=== PATIENT | male | born 1985 | race Caucasian/White ===

== ENCOUNTER 2020-07-25 | Outpatient (REF) | payer BC, SELFPAY ==
[2020-07-26 11:54] LABS: Glucose Urine UA NEG (NEG); Leukocyte Esterase Urine NEG (NEG); Nitrite Urine NEG (NEG); PH 7.5 (5.0-8.0); Specific Gravity - Urine 1.015 (1.005-1.025); Urine Blood NEG (NEG); Urine Ketones NEG (NEG); Urine Protein NEG (NEG-TRACE)
[2020-07-26 11:56] LABS: Appearance Urine CLEAR; Color Urine YELLOW
[2020-07-26 15:13] LABS: CT PCR NOT DETECTED (Not Detect.); NG PCR NOT DETECTED (Not Detect.)
== END 2020-07-25 00:01 | disposition home or self-care (01) ==
LOC: HO.LNP
PROVIDERS: Visit Provider Family Medicine
DX: R30.0 Dysuria (principal); Z11.3 Encounter for screening for infections with a predominantly sexual mode of transmission
CPT/HCPCS: 81003; 87086; 87491; 87591

== ENCOUNTER 2021-07-01 11:09 | Outpatient (REF) | payer OTHER, SELFPAY ==
[2021-07-01 13:23] LABS: MANUAL DIFF FLAG NO
[2021-07-01 13:27] LABS: Basophils Absolute Auto 0.1 X10*3/uL (0.0-0.2); Basophils Percent Auto 1.3 % (0-2); Eosinophils Absolute Auto 0.1 X10*3/uL (0.0-0.4); Eosinophils Percent Auto 2.8 % (0-4); Hematocrit 42.6 % (42.0-52.0); Hemoglobin 14.6 g/dl (14.0-18.0); Lymphocytes Absolute Auto 1.5 X10*3/uL (1.2-4.9); Lymphocytes Percent Auto 38.8 % (20-40); Mean Corpuscular HGB Conc 34.3 g/dl (31.0-36.0); Mean Corpuscular Hemoglobin 31.3 pg (27.0-33.0); Mean Corpuscular Volume 91.4 fL (80.0-98.0); Monocytes Absolute Auto 0.4 X10*3/uL (0.1-1.2); Monocytes Percent Auto 11.1 % (2-11); Neutrophils Absolute Auto 1.8 x10*3/uL (2.0-8.3); Platelet Count 180 X10*3/uL (160-400); Red Blood Count 4.66 X10*6/uL (4.60-5.80); Red Cell Distribution Width 11.8 % (11.0-16.0)
[2021-07-01 13:33] LABS: Appearance Urine CLEAR; Glucose Urine UA NEG (NEG); Leukocyte Esterase Urine NEG (NEG); Nitrite Urine NEG (NEG); Specific Gravity - Urine <= 1.005 (1.005-1.025); Urine Blood NEG (NEG); Urine Ketones NEG (NEG); Urine Protein NEG (NEG-TRACE)
[2021-07-01 13:34] LABS: Color Urine COLORLESS
[2021-07-01 13:44] LABS: Alanine Aminotransferase 10 U/L (0-40); Albumin Level 4.9 g/dL (3.5-5.0); Alkaline Phosphatase 80 U/L (39-117); Anion Gap 12 (12-20); Aspartate Amino Transferase 16 U/L (5-37); Bilirubin Total 0.6 mg/dL (0.0-1.0); Blood Urea Nitrogen 7 mg/dL (9-16); Calcium 9.7 mg/dL (8.4-10.2); Carbon Dioxide 26 mmol/L (22-29); Chloride 105 mmol/L (96-108); Cholesterol 165 mg/dL; Estimated Glomerular Filt Rate > 60; Glucose Fasting 99 mg/dL (60-99); HDL Cholesterol 46 mg/dL; Iron 67 mcg/dL (45-160); LDL Cholesterol Calculated 109 mg/dl; Percent Iron Saturation 20 % (15-50); Sodium 139 mmol/L (135-145); Total Iron Binding Capacity 338 mcg/dL (228-428); Total Protein 7.6 g/dL (6.5-8.0); Triglycerides 51 mg/dL; Unsaturated Iron Binding 271 ug/dL
[2021-07-01 13:58] LABS: Ferritin 83 ng/mL (20-250); TSH reflex Free T4 1.89 uIU/mL (0.32-4.0)
[2021-07-01 14:22] LABS: Folate 13.9 ng/mL (> or = 4.0); Vitamin B12 675 pg/mL (200-900)
== END 2021-07-01 11:10 | disposition home or self-care (01) ==
LOC: HO.WFDLDS 11:09
PROVIDERS: Visit Provider Family Medicine
DX: Z00.00 Encounter for general adult medical examination without abnormal findings (principal); R30.0 Dysuria; E53.8 Deficiency of other specified B group vitamins; R20.9 Unspecified disturbances of skin sensation
CPT/HCPCS: 36415; 80053; 80061; 81003; 82607; 82728; 82746; 83540; 84443; 85025

== ENCOUNTER → 2021-08-15 15:12 | Outpatient (BNVA) | payer OTHER, SELFPAY | PROVIDERS: PCP Family Medicine | DX: R35.0 Frequency of micturition (principal) | CPT/HCPCS: 51798; 99202 ==

== ENCOUNTER 2024-03-08 10:07 | Outpatient (AMB) | payer OTHER, SELFPAY ==
--- NOTE | 2024-03-08 10:10 | MHC.PC.OV ---
Vital Signs 03/08/24 10:15 Height 4 ft 11 in Weight 126 lb 4 oz BMI 25.5 BP 102/64 Blood Pressure Location Rt brachial Position Sitting Respiration 16 Pulse 79 Pulse Source Pulse Oximeter Temp 98.4 F Temp Source Oral Pulse Oximetry (%) 100 Oxygen Delivery Method Room Air Intake Visit Reasons: Insomnia / Anxiety (get ins) Intake Note: patient here c/o of insomnia and anxiety [employer] Required: No Allergies No Known Allergies Allergy (Verified 03/08/24 10:24) Medication List - Last Reconciled 03/08/24 by Trever Black CNP No Known Home Meds Tobacco use date assessed: 03/08/24 Dental Screening Dental Screen Date: 03/08/24 Did you have a dental visit in the last 12 months?: Yes Did you have a dental problem in the last 6 months where you did not have access to dental care?: No Was dental information given to patient?: Patient has dentist HPI HPI Comments History of Present Illness Details 38-year-old male presents with complaints of body tension and anxiety. His anxiety wakes him up multiple times from his sleep at night. His symptoms started been ongoing for the past 3 weeks and intensified after he experimented with micro dose of sublingual cannabis oil for 1 month and smoked three puffs of cannabis for three days. He has not used or smoke cannabis since the onset of his symptoms. He has been taking Benadryl with significant improvement. He denies stresses. He denies history of anxiety, depression, or mental illiness. He notes that he does physical exercise routinely. He also maintains a healthy diet. He is a patient of Dr. Barrett. His last office visit was on 07/10/2021. Nonsmoker. Does not drink alcohol. No recreational drugs at this time. [facility] Social History Housing: House Alcohol intake: current Patient Tobacco Use Status: Never used Tobacco e-Cigarette/Vaping Use: Never Used Second Hand Smoke Exposure: No service: No Current occupational status: employed Current occupational exposures/hazards: No Cognitive needs: No Hearing needs: No Vision needs: No Questionnaire PHQ-9 Over the last 2 weeks, how often have you been bothered by any of the following problems? 1. Little interest or pleasure in doing things: not at all 2. Feeling down, depressed, or hopeless: not at all 3. Trouble falling or staying asleep, or sleeping too much: nearly every day 4. Feeling tired or having little energy: several days 5. Poor appetite or overeating: not at all 6. Feeling bad about yourself - or that you are a failure or have let yourself or your family down: not at all 7. Trouble concentrating on things, such as reading the newspaper or watching television: several days 8. Moving or speaking so slowly that other people could have noticed. Or the opposite - being so fidgety or restless that you have been moving around a lot more than usual: not at all 9. Thoughts that you would be better off or of hurting yourself in some way: not at all Total score: 5 Depression Screening Interpretation: Positive Depression Screening Done: Yes 56837 - PHQ-9 Billing: Yes Source: Developed by Drs. Fernie Garza, Lucie Sarabia, Vinay Francis and colleagues, with an educational flavia from [employer]. Thrive Questionnaire Date Thrive assessed: 03/08/24 I am a: Patient What is your living situation today?: I choose not to answer this question Within the past 12 months, did the food you bought not last and you didn't have the money to get more?: I choose not to answer this question Within the past 12 months, did you worry whether your food would run out before you got money to buy more?: I choose not to answer this question Do you have trouble paying for medicines?: I choose not to answer this question Do you have trouble getting transportation to medical appointments?: I choose not to answer this question Do you have trouble paying your heating and electricity bill?: I choose not to answer this question Do you have trouble taking care of your child, family member or friend?: I choose not to answer this question Do you have trouble with day-to-day activities such as bathing, preparing meals, shopping, managing finances, etc.?: I choose not to answer this question Are you currently unemployed and looking for a job?: I choose not to answer this question Are you interested in more education?: I choose not to answer this question Please select the resources that you would like help with: None Currently or been in a relationship where the following occur: I choose not to answer THRIVE Score: 0 AUDIT C Alcohol Use Questionnaire (AUDIT-C) 1. How often do you have a drink containing alcohol?: Never Total Score: 0 Score Reviewed/Action Taken: Yes VAN-7 AMB Questionnaire VAN-7 Date VAN - 7 assessed: 03/08/24 Feeling nervous, anxious, or on edge: 3 = Nearly every day Not being able to stop or control worryin = Nearly every day Worrying too much about different things: 3 = Nearly every day Trouble relaxin = Nearly every day Being so restless that it is hard to sit still: 0 = Not at all Becoming easily annoyed or irritable: 0 = Not at all Feeling afraid as if something awful might happen: 2 = More than half the days Total VAN-7 score (0-4 normal; 5-9 mild; 10-14 moderate; 15-21 severe): 14 Source: Developed by Drs. Fernie Garza, Lucie Sarabia, Vinay Francis and colleagues, with an educational flavia from [employer]. VAN-7 Assessment Billing VAN-7 Assessment Tool: VAN-7 Assessment 76721 Review of Systems Const Details: Const Denies chills, Denies fatigue, Denies fever(s), Denies headache(s) and Denies weakness ENT Denies dizziness and Denies headache(s) Card Denies chest pain, Denies lightheadedness, Denies dyspnea and Denies other (Palpitations) Resp Denies cough, Denies dyspnea, Denies wheezing and Denies other ( shortness of breath) GI Denies abdominal pain, Denies melena, Denies hematochezia, Denies change in bowel habits, Denies dyspepsia and Denies nausea Denies hematuria and Denies dysuria Musc Denies abnormal gait, Denies myalgias, Denies arthralgias, Denies numbness and Denies tingling Skin/Breast Denies rash, Denies unusual bruising and Denies wounds Neuro Denies abnormal gait, Denies dizziness, Denies headache(s), Denies memory loss, Denies numbness, Denies Sensory deficit (Neuro), Denies tingling and Denies weakness Psych Reports anxiety, Denies depression, Denies memory loss Endo Denies cold intolerance, Denies fatigue, Denies heat intolerance, Denies polydipsia and Denies polyuria Aller/Immun Denies wheezing Physical exam (Primary Care) Vital Signs: Last Vital Signs Temp 98.4 F 03/08/24 10:15 Pulse 79 03/08/24 10:15 Resp 16 03/08/24 10:15 BP 102/64 03/08/24 10:15 Pulse Ox 100 03/08/24 10:15 Oxygen Delivery Method Room Air 03/08/24 10:15 BMI result Body Mass Index 25.5 Tobacco/Smoking Status: Tobacco use Status Tobacco use date assessed 03/08/24 03/08/24 10:16 Patient Tobacco Use Status Never used Tobacco 03/08/24 10:16 e-Cigarette/Vaping Use Never Used 03/08/24 10:13 PHQ-9: PHQ-9 Score PHQ-9: Total score 5 03/08/24 10:31 Depression Screening Interpretation: Positive Thrive Assessment: Date of Thrive Assessment Date Thrive assessed 03/08/24 03/08/24 10:21 Currently or been in a relationship where the following occur: I choose not to answer Const Other: General: no acute distress and well developed Nutritional Appearance: well nourished Orientation/consciousness: patient oriented x3 HENMT Head: Yes normocephalic and Yes atraumatic Eyes General: appearance normal, both eyes and all related structures Pupils: Equal, round and reactive pupils present EOM: EOMs intact bilaterally Resp Effort & Inspection: normal respiratory effort Auscultation: clear to auscultation bilaterally Cardio Rate: regular rate Rhythm: regular rhythm Heart sounds: S1 normal heart sound present, S2 normal heart sound present, no gallops, no murmurs and no rubs GI Palpation (GI): No Abdominal aortic bruit present, Soft to palpation, nontender, No hepatosplenomegaly present and No Rebound tenderness present Auscultation: normal bowel sounds General: Yes no CVA tenderness Back/Spine/Pelvis Back: no CVA tenderness Extrem General: Yes normal to inspection, No edema and No calf tenderness Skin General: warm and dry. Normal skin color. Normal skin turgor Neuro General: patient oriented x3, gait normal and no focal neuro deficit Cranial nerves: Yes Equal, round and reactive pupils present Cognition (Neuro): normal cognition Gait exam (Neuro): Normal gait present Sensory Exam: No Sensory deficit (Neuro) Psych Appearance: grossly normal Affect: normal affect Attitude: cooperative Thought process: Normal thought process present Coding Level of Care Code Est Pt Level 4 (21200) Diagnoses Anxiety F41.9 Sleep disturbance G47.9 Additional Codes VAN-7 Assessment Billing - VAN-7 Assessment Tool: VAN-7 Assessment 06120 ([id number]) PHQ-9 - 16404 - PHQ-9 Billing: Yes ([id number]) Assessment & Plan Assessment & Plan (1) Anxiety: Code(s): F41.9 - Anxiety disorder, unspecified Category: Medical Plan: Reports anxiety symptoms and sleep disturbance x3 weeks. His symptoms worsened after experimenting with smoking cannabis and sublingual oil. He has been taking Benadryl with some relief. He has not use or smoking habit for the past 2 weeks. PHQ-9 and VAN-7 score revealed mild depression and moderate anxiety respectively Advised to stop taking Benadryl Will start hydroxyzine 25 mg twice daily as needed. Worse to take as prescribed. Instructed on the risks, benefits, and potential adverse reactions of the medications Encouraged to avoid cannabis use Follow-up in 2 weeks or sooner with worsening or new symptoms Verbalized understanding and agreed with the treatment plan (2) Sleep disturbance: Code(s): G47.9 - Sleep disorder, unspecified Category: Medical Plan: Plan as above Medications: New hydroxyzine HCl 25 mg PO BID PRN 60 tabs 0RF anxiety
[2024-03-08 10:15] VITALS: BP 102/64; PULSE 79; RESP 16; TEMP 36.9; O2SAT 100; BMI 25.5
== END 2024-03-08 10:44 | disposition home or self-care (01) ==
PROVIDERS: PCP Family Medicine; Visit Provider Nurse Practitioner Family
DX: F41.9 Anxiety disorder, unspecified (principal); G47.9 Sleep disorder, unspecified

== ENCOUNTER → 2024-03-08 10:07 | Outpatient (BNVA) | payer OTHER, SELFPAY | PROVIDERS: PCP Family Medicine; Visit Provider Nurse Practitioner Family | DX: F41.9 Anxiety disorder, unspecified (principal); G47.9 Sleep disorder, unspecified | CPT/HCPCS: 96127 ==

== ENCOUNTER 2024-05-23 10:03 | Outpatient (REF) | payer OTHER, SELFPAY ==
[2024-05-23 12:59] LABS: TSH reflex Free T4 1.67 uIU/mL (0.32-4.0)
== END 2024-05-23 10:04 | disposition home or self-care (01) ==
LOC: HO.WFDLDS 10:03
PROVIDERS: Visit Provider Nurse Practitioner Family
DX: F41.9 Anxiety disorder, unspecified (principal); G47.9 Sleep disorder, unspecified
CPT/HCPCS: 36415; 84443